=== PATIENT | male | born 1950 ===

== ENCOUNTER 2019-03-14 12:54 | Outpatient (CLI) | payer OTHER | END 2019-03-14 13:04 | disposition home or self-care (01) | LOC: NUCLEAR 12:54 | DX: I67.1 Cerebral aneurysm, nonruptured (principal); G45.9 Transient cerebral ischemic attack, unspecified; I25.9 Chronic ischemic heart disease, unspecified | CPT/HCPCS: 78607; A9557 ==

== ENCOUNTER 2019-03-26 08:58 | Outpatient (CLI) | payer OTHER | END 2019-03-26 09:00 | disposition home or self-care (01) | LOC: NUCLEAR 08:58 | DX: I78.9 Disease of capillaries, unspecified (principal); I69.322 Dysarthria following cerebral infarction; I67.82 Cerebral ischemia; R94.31 Abnormal electrocardiogram [ECG] [EKG]; R00.2 Palpitations ==

== ENCOUNTER 2019-06-20 08:55 | Outpatient (CLI) | payer OTHER | END 2019-06-20 08:56 | disposition home or self-care (01) | LOC: RAD 08:55 | DX: R10.13 Epigastric pain (principal); R13.19 Other dysphagia ==

== ENCOUNTER 2019-10-02 10:27 | Outpatient (CLI) | payer OTHER | END 2019-10-02 10:56 | disposition home or self-care (01) | LOC: TOM 10:27 | DX: R05 Cough (principal); Z87.891 Personal history of nicotine dependence; R06.02 Shortness of breath ==